=== PATIENT | female | born 1995 | race Caucasian/White ===

== ENCOUNTER 2020-08-24 08:37 | Day surgery (SDC) | payer BC ==
[2020-08-24] VITALS (7 sets, daily range): BP systolic 109–129; BP diastolic 57–80; PULSE 89–108; TEMP 98.3–98.8
[~2020-08-24] VITALS: Ht 162.6 cm; Wt 61.4 kg
[2020-08-24] MEDS ORDERED: STRATTERA18 MG PO (09:13)
[2020-08-24] MEDS ORDERED: ZYRTEC 10MG10 MG PO (09:13)
[2020-08-24] MEDS ORDERED: ASPIRIN 81M81 MG/TA2 PO (09:13)
[2020-08-24 09:59] LABS: COLLECTION METHOD CLEAN CATCH
[2020-08-24 10:03] LABS: BASO % 0.6 % (0.0-2.0); EOS % 0.3 % (0-4.0); GRAN # 5.9 (1.4-6.5); GRAN % 84.5 % (42.2-75.2); HEMOGLOBIN 10.7 g/dl (12.5-16.0); LYMPH # 0.5 (1.2-3.4); LYMPH % 7.6 % (20.0-51.0); MEAN CELL VOLUME 92 fl (80.0-100.0); MEAN CORPUSCULAR HEMOGLOBIN 33 pg (27.0-31.0); MEAN CORPUSCULAR HGB CONC 35 g/dl (33.0-37.0); MEAN PLATELET VOLUME 8.7 fl (7.4-10.4); MONO # 0.5 (0.1-0.6); MONO % 6.6 % (1.7-9.3); PLATELET COUNT 201 K/mm3 (130-400); RED BLOOD COUNT 3.29 M/mm3 (4.10-5.30); REDCELL DISTRIBUTION WIDTH-CV 11.6 % (11.5-14.5)
[2020-08-24 10:21] LABS: HEMATOCRIT 30.4 % (37.0-47.0)
[2020-08-24 10:32] LABS: PH 8 (5-8); URINE APPEARANCE Cloudy; URINE BACTERIA Rare /hpf; URINE BILIRUBIN Negative (NEGATIVE); URINE BLOOD Negative (NEGATIVE); URINE COLOR Yellow; URINE GLUCOSE Negative (NEGATIVE); URINE KETONE Negative (NEGATIVE); URINE LEUKOCYTE ESTERASE Trace (NEGATIVE); URINE NITRATE Negative (NEGATIVE); URINE PROTEIN(semi-quant) Negative (NEGATIVE); URINE RBC 0-2 /hpf; URINE UROBILINOGEN Negative (NEGATIVE)
[2020-08-24 10:33] LABS: ALBUMIN 4.2 gm/dL (3.5-5.0); BILIRUBIN,TOTAL 1.1 mg/dL (0.0-1.0); CALCIUM 9.1 mg/dL (8.4-10.2); CREATININE, serum 0.69 (0.52-1.25); POTASSIUM 3.6 mmol/L (3.4-5.0); TOTAL PROTEIN 7.3 gm/dL (6.4-8.2)
[2020-08-24 11:01] LABS: C-REACTIVE PROTEIN 0.8 mg/dL (0.0-0.9)
[2020-08-24] MEDS ORDERED: NORCO 325 MG-51 TAB PO (12:11)
[2020-08-24] MEDS ORDERED: IBU800 M1 PO ×3 (14:44→20:05)
[2020-08-24] MEDS ORDERED: PERCOCET 325 MG1 TA2 PO ×3 (14:46→20:05)
--- NOTE | 2020-08-24 15:15 | NUR ---
Pt arrived on unit with PACU via bed. Report received from PACU nurse. Pt oriented to room, bed and call light within reach. Plan of care reviewed.
--- NOTE | 2020-08-24 19:30 | NUR ---
DISCHARGE INSTRUCTIONS REVIEWED WITH PT, UNDERSTANDING VERBALIZED. PRESCRIPTIONS TO PREFERRED RX, PT TO [facility] AFTER DISCHARGE. PT OFF THE UNIT AMBULATORY FOR HOME. ESCORTED OFF UNIT BY THIS NURSE.
== END 2020-08-24 19:30 | disposition home or self-care (01) ==
LOC: COL.ER 08:37 → OB 14:26 → SDCO 14:26
PROVIDERS: Family Medicine
DX: N83.02 Follicular cyst of left ovary (principal); K66.1 Hemoperitoneum; D64.9 Anemia, unspecified; F90.9 Attention-deficit hyperactivity disorder, unspecified type; Z79.899 Other long term (current) drug therapy; Z79.82 Long term (current) use of aspirin
CPT/HCPCS: OP; J1100; J1885; J2270; J2405; J2704; J2710; J3010; J7120; Q9967

== ENCOUNTER 2021-11-20 07:24 | Emergency (ER) | payer BC ==
[~2021-11-20] VITALS: Ht 162.6 cm; Wt 61.4 kg
[~2021-11-20 07:24] MED LIST: ASPIRIN 81M81 MG/TA2 PO; IBU800 M1 PO; NORCO 325 MG-51 TAB PO; PERCOCET 325 MG1 TA2 PO; STRATTERA18 MG PO; ZYRTEC 10MG10 MG PO
[2021-11-20 08:15] LABS: BASO % 0.6 % (0.0-2.0); EOS # 0.1 K/mm3 (0.0-0.7); EOS % 1.9 % (0.0-4.0); GRAN # 4.3 K/mm3 (1.4-6.5); GRAN % 82.8 % (42.2-75.2); HEMOGLOBIN 12.2 g/dl (12.5-16.0); LYMPH # 0.3 K/mm3 (1.2-3.4); LYMPH % 5.4 % (20.0-51.0); MEAN CELL VOLUME 95 fl (80.0-100.0); MEAN CORPUSCULAR HEMOGLOBIN 32 pg (27-31); MEAN CORPUSCULAR HGB CONC 34 g/dl (33.0-37.0); MEAN PLATELET VOLUME 8.7 fl (7.4-10.4); MONO # 0.5 K/mm3 (0.1-0.6); MONO % 8.9 % (1.7-9.3); PLATELET COUNT 193 K/mm3 (130-400); RED BLOOD COUNT 3.77 M/mm3 (4.10-5.30); REDCELL DISTRIBUTION WIDTH-CV 11.6 % (11.5-14.5)
[2021-11-20 08:16] LABS: HEMATOCRIT 35.7 % (37.0-47.0)
[2021-11-20 08:33] LABS: ALBUMIN 4.3 gm/dL (3.5-5.0); BILIRUBIN,TOTAL 0.6 mg/dL (0.2-1.2); CALCIUM 9.3 mg/dL (8.4-10.2); CREATININE, serum 1.03 mg/dL (0.57-1.11); TOTAL PROTEIN 7.2 gm/dL (6.2-8.1)
[2021-11-20] MEDS ORDERED: NORCO 325 MG-51 TAB PO (11:48)
[2021-11-20] MEDS ORDERED: ZOFRAN ODT4 MG PO (11:49)
[2021-11-20 12:12] VITALS: BP 101/44; PULSE 96; TEMP 99.4
== END 2021-11-20 12:16 | disposition home or self-care (01) ==
LOC: COL.ER 07:24
PROVIDERS: Personal Emergency Response Attendant
DX: U07.1 COVID-19 (principal)
CPT/HCPCS: J1790; J2270; J2405; J7030